=== PATIENT | female | born 1990 | race Caucasian/White ===

== ENCOUNTER 2023-10-27 17:12 | Outpatient (OUT) | payer OTHER, SELFPAY ==
--- NOTE | 2023-10-27 | US_ITS ---
[address] [address] Patient Name: ARACELI SCHWARTZ MRN: [id number] date: 1990 Sex: F Assigned Patient Location: Current Patient Location: Accession/Order Number: [id number] Exam Date: 10/27/2023 17:50 Report Date: 10/28/2023 07:08 At the request of: CHELSEA ROBLES Procedure: US OB transvaginal EXAMINATION: US OB transvaginal HISTORY: Bleeding in early COMPARISON: No relevant comparison available. FINDINGS: GESTATIONAL SAC: Present YOLK SAC: Absent POLE: Absent CARDIAC: Absent UTERUS: Normal size and appearance. OVARIES: Right: Heterogeneous 2.4 cm area; likely complex cyst. Left: Contains a 1.3 cm cyst. CERVIX: 3.3 cm in length and closed. CUL-DE-SAC: Normal. OTHER: None. AGE BY LMP: 6 weeks 2 days AVELINO BY LMP: 06/19/2024 AGE BY US CRL: Indeterminant AVELINO BY US CRL: US/US OB transvaginal IMPRESSION: 1. 3 mm round fluid collection within fundal aspect of endometrial cavity; possibly a very early intrauterine . Follow-up recommended. Electronically authenticated by: ESA MILLER Date: 10/28/2023 07:08
== END 2023-10-27 17:13 | disposition home or self-care (01) ==
LOC: US 17:12
PROVIDERS: Visit Provider Obstetrics & Gynecology
DX: R10.2 Pelvic and perineal pain (principal); O20.9 Hemorrhage in early pregnancy, unspecified
CPT/HCPCS: 76817

== ENCOUNTER 2023-11-04 17:16 | Outpatient (OUT) | payer OTHER, SELFPAY ==
--- NOTE | 2023-11-04 | US_ITS ---
[address] [address] Patient Name: ARACELI SCHWARTZ MRN: [id number] date: 1990 Sex: F Assigned Patient Location: US Current Patient Location: Accession/Order Number: [id number] Exam Date: 11/04/2023 17:40 Report Date: 11/05/2023 07:13 At the request of: CHELSEA ROBLES Procedure: US OB transvaginal EXAMINATION: US OB transvaginal HISTORY: Bleeding in COMPARISON: 10/27/2023 FINDINGS: Small area of anechoic echogenicity previously noted in the endometrial cavity is no longer visualized Uterus is normal, anteverted. The endometrium measures 1.6 cm. The right ovary measures 3.2 x 2.1 x 2.6 cm. Normal color flow. Avascular hypoechogenic cystic area measuring 1.6 cm complex cyst favored The left ovary measures 3.9 x 1.7 x 2.6 cm. Normal color flow. 1.4 cm anechoic area, simple cyst US/US OB transvaginal IMPRESSION: No intrauterine or ectopic is identified Electronically authenticated by: LINDA SCHMIDT Date: 11/05/2023 07:13
--- OUTSIDE RECORDS SUMMARY | 2023-11-04 17:22 | XMS_ITS | CCD ---
Author Organization [facility] Care Team Providers Care Airborne And Air Delivery Specialist Name Role Phone NO PCP, NO PCP Primary Care Unavailable EPHRAIM LOUISE Attending Unavailable NO PCP, NO PCP Primary Care Unavailable SACHIN HERNANDEZ Attending Unavailable Problems Problem Classification Problem Date Documented Da te Episodic/Chronic Fever of unknown origin (2 sources) Fever, unspecified; Translations: [Fever] Onset: 10-31-2023 Episodic Other upper respiratory infections (2 sources) Acute upper respiratory infection, unspecified; Translations: [Acute laryngitis] Onset: 10-31-2023 Episodic Unclassified (1 source) Earache Onset: 11-02-2023 Unclassified (1 source) Generalized Body Aches Onset: 10-31-2023 Unclassified (1 source) body aches, fever, Onset: 10-31-2023 Urinary tract infections (1 source) Acute cystitis with hematuria; Translations: [Acute cystitis with hematuria] Onset: 11-02-2023 Episodic Results Test Name Value Interpretation Reference Range Facil ity URN MACROSCOPIC NURon 2023 BILIRUBIN ALYSE Small Abnormal NEG [facility] Comment on above: Performed By: #### N UM #### [facility] ([id number]) [address] [place] [address] BLOOD/HGB ALYSE Large Abnormal NEG [facility] Comment on above: Performed By: #### N UM #### [facility] ([id number]) [address] [place] [address] GLUCOSE ALYSE Negative Normal NEG [facility] Comment on above: Performed By: #### N UM #### [facility] ([id number]) [address] [place] [address] KETONES ALYSE Trace Abnormal NEG [facility] Comment on above: Performed By: #### N UM #### [facility] ([id number]) [address] [place] [address] LEUKOCYTE ESTERASE ALYSE Small Abnormal NEG [facility] Comment on above: Performed By: #### N UM #### [facility] ([id number]) [address] [place] [address] NITRITE ALYSE Negative Normal NEG [facility] Comment on above: Performed By: #### N UM #### [facility] ([id number]) [address] [place] [address] PH ALYSE 6.0 Normal 5.0-8.5 [facility] Comment on above: Performed By: #### N UM #### [facility] ([id number]) [address] [place] [address] PROTEIN ALYSE 100 mg/dL Abnormal NEG [facility] Comment on above: Performed By: #### N UM #### [facility] ([id number]) [address] [place] [address] SPECIFIC GRAVITY ALYSE 1.025 Normal 1.003-1.035 [facility] Comment on above: Performed By: #### N UM #### [facility] ([id number]) [address] [place] [address] UROBILINOGEN ALYSE 1.0 eu/dL Normal <1.1 [facility] Comment on above: Performed By: #### N UM #### [facility] ([id number]) [address] [place] [address] SARS/FLU A+B/RSV by NAAT/Mol eckiahon 10-31-2023 SARS/FLU A+B/RSV by NAAT/Molecular FLU A PCR Negative (qualifier value) FLU B PCR Negative (qualifier value) RSV by PCR Negative (qualifier value) SARS CoV 2 Not detected (qualifier value) NOTE The Xpert Xpress SARS-CoV-2/Flu/RSV Plus test is a rapid, multiplexed real-time RT-PCR test intended for the simultaneous qualitative detection and differentiation of SARS-CoV-2, influenza A, influenza B and respiratory syncytial virus (RSV) viral RNA from individuals suspected of respiratory viral infection consistent with COVID-19 by their healthcare provider. This test has not been validated in asymptomatic patients. The Xpert Xpress SARS-CoV-2 test is intended for use by qualified and trained operators who are performing tests using either [employer] or [employer] systems and is limited to laboratories that meet the CLIA requirements to perform high and moderate complexity tests. The Xpert Xpress SARS-CoV-2/Flu/RSV Plus is only for use under the Food and Drug Administration's Emergency Use Authorization. Results are for the simultaneous detection and differentiation of SARS-CoV-2, influenza A, influenza B and RSV nucleic acids in clinical specimens. SARS-CoV-2, influenza A, influenza B and RSV RNA identified by this test are generally detectable in upper respiratory samples during the acute phase of infection. Positive results are indicative of the presence of the identified virus, but do not rule out bacterial infection or co-infection with other pathogens not detected by this test. Clinical correlation with patient history and other diagnostic information is necessary to determine patient infection status. The agent detected may not be the definite cause of disease. Negative results do not preclude SARS-CoV-2, influenza A, influenza B and RSV infection and should not be used as the sole basis for treatment or other patient management decisions. Negative results must be combined with clinical observations, patient history and epidemiological information. An Invalid result may occur with specimen-associated inhibition unable to be resolved with specimen repeat. Fact Sheet for Healthcare Providers: https://www.fda.gov/m edia/145086/download Fact Sheet for Patients: https://www.fda.gov/m edia/375428/download Normal [facility] Comment on above: Performed By: #### C OVFLR #### [facility] ([id number]) [address] [place] [address], [place] [address] URN ZULLY Tan 06-22- 2024 BILIRUBIN ALYSE Negative Normal NEG [facility] Comment on above: Performed By: #### N UM #### [facility] ([id number]) [address] [place] [address] [place] [address] BLOOD/HGB ALYSE Trace Abnormal NEG [facility] Comment on above: Performed By: #### N UM #### [facility] ([id number]) [address] [place] [address], [place] [address] GLUCOSE ALYSE Negative Normal NEG [facility] Comment on above: Performed By: #### N UM #### [facility] ([id number]) [address] [place] [address], [place] [address] KETONES ALYSE Negative Normal NEG [facility] Comment on above: Performed By: #### N UM #### [facility] ([id number]) [address] [place] [address] [place] [address] LEUKOCYTE ESTERASE ALYSE Trace Abnormal NEG [facility] Comment on above: Performed By: #### N UM #### [facility] ([id number]) [address] [place] [address], [place] [address] NITRITE ALYSE Negative Normal NEG [facility] Comment on above: Performed By: #### N UM #### [facility] ([id number]) [address] [place] [address], [place] [address] PH ALYSE 7.0 Normal 5.0-8.5 [facility] Comment on above: Performed By: #### N UM #### [facility] ([id number]) [address] [place] [address], [place] [address] PROTEIN ALYSE Negative Normal NEG [facility] Comment on above: Performed By: #### N UM #### [facility] ([id number]) [address] [place] [address], [place] [address] SPECIFIC GRAVITY ALYSE 1.020 Normal 1.003-1.035 [facility] Comment on above: Performed By: #### N UM #### [facility] ([id number]) [address] [facility] [place] [address] UROBILINOGEN ALYSE 0.2 eu/dL Normal <1.1 [facility] Comment on above: Performed By: #### N UM #### [facility] ([id number]) [address] [facility] [place] [address] Encounters Encounter Date Encounter Type Care Provider Facility Start: 11-02-2023 End: 11-02-2023 Emergency department patient visit NO PCP NO PCP [facility] Start: 10-31-2023 End: 10-31-2023 Emergency department patient visit NO PCP NO PCP [facility] Payers Date Payer Category Payer Medicaid [id number] 1990 Unknown [id number] 1990 Unknown [id number] Summary Purpose Family History No Family History Records Found Advance Directives No Advanced Directives Records Found Additional Source Comments INFORMATION SOURCE (unrecogn ized section and content) DATE CREATED AUTHOR 11/04/2023 [facility] FOR RECORDS PERTAINING TO PATIENTS WHO ARE OR HAVE BEEN ENROLLED IN A CHEMICAL DEPENDENCY/SUBSTANCEABUSE PROGRAM, SOME INFORMATION MAY BE OMITTED. This clinical summary was aggregated from multiple sources. Caution should be exercised in using it in the provision of clinical care. This summary normalizes information from multiple sources, and as a consequence, information in this document may materially change the coding, format and clinical context of patient data. In addition, data may be omitted in some cases. CLINICAL DECISIONS SHOULD BE BASED ON THE PRIMARY CLINICAL RECORDS. [employer] provides no warranty or guarantee of the accuracy or completeness of information in this document.
== END 2023-11-04 17:17 | disposition home or self-care (01) ==
LOC: US 17:16
PROVIDERS: Visit Provider Obstetrics & Gynecology
DX: O20.9 Hemorrhage in early pregnancy, unspecified (principal); O36.80X0 Pregnancy with inconclusive fetal viability, not applicable or unspecified
CPT/HCPCS: 76817